=== PATIENT | male | born 1970 | race Caucasian/White ===

== ENCOUNTER 2021-01-01 07:54 | Day surgery (SDC) | payer BC ==
[2021-01-01] MEDS ORDERED: Lidocaine 2% 5 ML SDV INJECT ONE (07:55)
[2021-01-01] MEDS ORDERED: Propofol 200 MG/20 ML SDV IV ONE (07:55)
[2021-01-01] MEDS ORDERED: Lactated Ringers 1,000 ML IV SCH (08:00)
[2021-01-01] MEDS ORDERED: Sodium Chloride 0.9% 10 ML Syringe FLUSH PRN (08:00)
--- NOTE | 2021-01-01 09:37 | PCM.OPNOTE ---
- General Post-Op/Procedure Note Date of Surgery/Procedure: 01/01/21 Operative Procedure(s): c scope Findings: sigmoid diverticulosis Pre Op Diagnosis: screening for colon cancer Post-Op Diagnosis: sigmoid diverticulosis Anesthesia Technique: MYA Primary Surgeon: Christiano Leslie Anesthesia Provider: Kulwinder Barahona Pathology: none Complications: None Condition: Good Free Text/Narrative:: see dictation #[id number]
--- NOTE | 2021-01-01 13:59 | OR ---
DATE OF OPERATION: 01/01/2021 SURGEON: Christiano Leslie MD PROCEDURE PERFORMED: Colonoscopy. PREOPERATIVE DIAGNOSIS: Colon cancer screening. POSTOPERATIVE DIAGNOSIS: Sigmoid diverticulosis. INDICATIONS FOR PROCEDURE: This is a 50-year-old white male who presents for his initial colon cancer screening. He is currently without complaints. He was offered and accepted same. DESCRIPTION OF OPERATION: After an excellent IV sedation was administered, digital rectal exam was performed. No marked abnormality was noted. Flexible colonoscope was inserted and advanced to the cecum. The prep was excellent. The following findings were noted. Ascending colon, unremarkable. Transverse colon, unremarkable. Descending colon, unremarkable. Sigmoid, mild diverticulosis noted. Rectum and anus, unremarkable. The patient tolerated the procedure well. RECOMMENDATIONS: Repeat colonoscopy in 10 years. /[id number] /MODL
== END 2021-01-01 10:20 | disposition home or self-care (01) ==
LOC: FB.SDS 07:54
PROVIDERS: ATTEND Surgery
DX: Z12.11 Encounter for screening for malignant neoplasm of colon (principal); K57.30 Diverticulosis of large intestine without perforation or abscess without bleeding; E66.9 Obesity, unspecified; Z98.890 Other specified postprocedural states; Z79.899 Other long term (current) drug therapy; Z68.31 Body mass index [BMI] 31.0-31.9, adult
CPT/HCPCS: 00812; 45378; J2704; J7120